=== PATIENT | female | born 1970 | race Caucasian/White ===

== ENCOUNTER → 2016-09-27 | Outpatient (CLI) | payer OTHER ==
[~2016-09-27] MED LIST: GADOBUTROL 10 ML VIAL IVP ONE
--- NOTE | 2016-09-28 16:12 | MR ---
MRI of the right humerus, without and with contrast - September 27, 2016 HISTORY: Abnormal intramedullary lesion proximal right humerus. Further evaluation requested. TECHNIQUE: Precontrast axial, oblique sagittal, oblique coronal MR sequences of the proximal right hu merus are obtained. After intravenous administration of 10 mL Gadavist, post contrast-enhanced imagin g is obtained in 3 planes. FINDINGS: There is an intramedullary sharply marginated lesion involving the proximal right humerus a t the level of the humeral neck. This lesion measures 3.0 cm in craniocaudal extension and demonstrat es low level multifocal enhancement after intravenous contrast administration. Lesion contains chondr oid matrix on plain film radiography and MRI examination. No soft tissue component or periostitis. 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 A low-grade chondrosarcoma could appear similar, however, radiographic follow-up is suggested. After intravenous contrast administration, there is diffuse enhancement of the right shoulder joint c apsule, compatible with synovitis. There is also abnormal enhancement of the subacromial/subdeltoid b ursa, compatible with bursitis. No additional areas of abnormal enhancement are identified. IMPRESSION: 1. 3-cm chondroid lesion proximal right humeral metaphysis, most likely an enchondroma, differential considerations include low-grade chondrosarcoma. Recommend radiographic follow up if this lesion is c linically silent. 2. Right shoulder synovitis and subacromial bursitis.
== END ==
LOC: FIMAGING 19:34
PROVIDERS: ATTEND Family Medicine
DX: M89.8X2 Other specified disorders of bone, upper arm (principal)
CPT/HCPCS: A9585

== ENCOUNTER → 2016-09-28 | Outpatient (CLI) | payer OTHER ==
--- NOTE | 2016-09-28 16:55 | MR ---
MRI of the Right Shoulder History: Shoulder pain. History of injury. Technique: Axial proton density, oblique coronal, and sagittal T1 and T2 images were acquired. Findings: A 3.0 cm chondroid lesion is identified in the proximal humeral diaphysis just past the camden sed growth plate. This lesion is further characterized on subsequent MRI of the right humerus without and with contrast, and has chondroid matrix suggestive of enchondroma versus low-grade chondrosarcom a. Moderate fluid-filled distention of the subacromial bursa is compatible with bursitis. There is also a moderate shoulder joint effusion with synovitis identified on postcontrast enhanced imaging, report ed separately. Supraspinatus tendon is diffusely abnormal with tendinosis and fusiform thickening. There is a small focal linear full-thickness or near full-thickness tear involving the anterior distal fibers of supra spinatus at the greater tuberosity insertion anteriorly (image 7 series 7, image 6 series 10, image 11 series 4). Infraspinatus is intact. Subscapularis and teres minor are intact. Long head biceps tendon is normall y positioned and intact. Acromioclavicular joint is benign in features. No displaced glenoid labral tear. Articular cartilage of the shoulder joint is intact. Impression: 1. 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 Recommend radiographic follow-up if the lesion is clinically silent. 2. Small focal linear high grade partial versus small full-thickness tear anterior distal fibers supr aspinatus at the greater tuberosity. Underlying supraspinatus tendinosis. 3. Right shoulder synovitis. Subacromial bursitis.
== END ==
LOC: FIMAGING 14:41
PROVIDERS: ATTEND Family Medicine
DX: M89.8X2 Other specified disorders of bone, upper arm (principal); S46.811A Strain of other muscles, fascia and tendons at shoulder and upper arm level, right arm, initial encounter; M65.811 Other synovitis and tenosynovitis, right shoulder

== ENCOUNTER → 2017-08-09 | Outpatient (CLI) | payer OTHER | LOC: FIMAGING 13:49 | PROVIDERS: ATTEND Family Medicine | DX: Z12.31 Encounter for screening mammogram for malignant neoplasm of breast (principal); Z80.3 Family history of malignant neoplasm of breast | CPT/HCPCS: G0202 ==

== ENCOUNTER → 2018-06-03 | Outpatient (CLI) | payer OTHER | LOC: CIMAGING 16:31 | PROVIDERS: ATTEND Family Medicine | DX: R06.00 Dyspnea, unspecified (principal); M89.9 Disorder of bone, unspecified | CPT/HCPCS: 71046-PO ==

== ENCOUNTER → 2018-08-27 | Outpatient (CLI) | payer OTHER | LOC: FIMAGING 14:24 | PROVIDERS: ATTEND Family Medicine | DX: Z12.31 Encounter for screening mammogram for malignant neoplasm of breast (principal) ==

== ENCOUNTER → 2018-09-09 | Outpatient (CLI) | payer OTHER | LOC: FIMAGING 08:38 | PROVIDERS: ATTEND Family Medicine | DX: Z13.820 Encounter for screening for osteoporosis (principal); M85.89 Other specified disorders of bone density and structure, multiple sites; E21.3 Hyperparathyroidism, unspecified ==